=== PATIENT | female | born 1975 | race Caucasian/White ===

== ENCOUNTER 2016-09-07 06:27 | Emergency (ER) | payer MEDICAID ==
--- NOTE | 2016-09-08 16:41 | ER ---
ADMIT: 09/07/2016 RM/LOC: ER [facility] MR#: [id number] [facility] [id number] QI GARZA [address] [place] [address] Emergency Room Report SEX: F AGE: 40 : 1975 DATE: 09/07/2016 ADDENDUM: This is a 40-year-old, white female coming in after falling on an outstretched arm. She has nondisplaced Roz type fracture, put a splint on that. She was given [place] here, , 2 and then #30 and 1-2 p.o. q.6, #20 of them p.r.n. pain. She needs to follow up with Dr. Servin or Ortho of choice if she wishes. CONDITION ON DISCHARGE: Fair. Fernando Mercado MD/ eduardo JOB #: [id number] CC: Seth Kelley MD, Attending Physician Se Servin MD, Family Physician
== END 2016-09-07 08:05 | disposition home or self-care (01) ==
LOC: ER 06:27
PROC: 2W39X1Z Immobilization of Left Upper Extremity using Splint (ICD-10-PCS; principal; 2016-09-07)
DX: S52.532A Colles' fracture of left radius, initial encounter for closed fracture (principal); F17.210 Nicotine dependence, cigarettes, uncomplicated; W19.XXXA Unspecified fall, initial encounter; Y92.410 Unspecified street and highway as the place of occurrence of the external cause

== ENCOUNTER → 2016-11-07 | Outpatient (CLI) | payer MEDICAID | END | disposition home or self-care (01) | LOC: RAD.S 08:47 | DX: M25.511 Pain in right shoulder (principal); M75.31 Calcific tendinitis of right shoulder ==